=== PATIENT | female | born 1935 | race Native Hawaiian/Other Pacific Islander ===

== ENCOUNTER 2017-08-21 10:35 | Emergency (ER) | payer MEDICARE ==
[2017-08-21 10:48] VITALS: BMI 20.2
--- NOTE | 2017-08-21 11:26 | C.PDOC ---
History Of Present Illness 82 yo female w/PMHx of HTN, CAD s/p NE, hemorrhoids, come in for evaluation of constipation for past 3 days. As per son, pt was c/o unable to urinate since yesterday evening. At present time, pt c/o mild Right lower back and suprapubic pain. Otherwise, pt and family denies fever, chills, lethargy or change in MS, headache, dizziness, CP, SOB, dyspnea, diaphoresis, palpitation, abd. pain, N/V/ D, denies blood in stool. Ambulate to ED for evaluation, not in nay apparent distress. Time Seen by Provider: 08/21/17 10:59 Chief Complaint (Nursing): GI Problem History Per: Patient, Family Past Medical History Reviewed: Historical Data, Nursing Documentation, Vital Signs Vital Signs: Last Vital Signs Temp 98 F 08/21/17 13:51 Pulse 83 08/21/17 13:51 Resp 20 08/21/17 13:51 BP 158/52 H 08/21/17 13:51 Pulse Ox 98 08/21/17 15:23 - Medical History PMH: CAD, HTN Surgical History: Carotid Endarterectomy - [facility] CONTR CEREBR ARTERIOGRAM (09/02/06) Family History: States: Unknown Family Hx - Social History Hx Tobacco Use: No Hx Alcohol Use: No Hx Substance Use: No - Immunization History Hx Tetanus Toxoid Vaccination: No Hx Influenza Vaccination: Yes Hx Pneumococcal Vaccination: No Review Of Systems Except As Marked, All Systems Reviewed And Found Negative. Constitutional: Negative for: Fever, Chills Eyes: Negative for: Vision Change ENT: Negative for: Ear Discharge, Nose Discharge, Throat Pain, Throat Swelling Cardiovascular: Negative for: Chest Pain, Palpitations, Orthopnea, Paroxysmal Noc. Dyspnea, Edema, Light Headedness Respiratory: Negative for: Cough, Shortness of Breath, Wheezing Gastrointestinal: Positive for: Constipation. Negative for: Nausea, Vomiting, Abdominal Pain, Melena, Hematochezia, Hematemesis, Rectal Pain Genitourinary: Negative for: Dysuria, Frequency Musculoskeletal: Positive for: Back Pain Skin: Negative for: Rash Neurological: Negative for: Weakness, Numbness, Altered Mental Status, Headache , Dizziness Physical Exam - Physical Exam Appears: Well, Non-toxic, No Acute Distress Skin: Normal Color, Warm, Dry, No Rash Eye(s): bilateral: PERRL Nose: No Flaring Oral Mucosa: Moist, No Drooling Throat: No Erythema, No Exudate, No Drooling Neck: Trachea Midline, Supple Cardiovascular: Rhythm Regular, No Murmur, No JVD Respiratory: No Decreased Breath Sounds, No Rales, No Rhonchi Gastrointestinal/Abdominal: Soft, Tenderness (mild suprapubic tenderness), No Organomegaly, No Distention, No Guarding, No Rebound Rectal: Rectal Tone, Heme Positive, Hemorrhoids (external, non-thrombosed), Other (rectal disimpaction performed during the exam) Back: No CVA Tenderness Extremity: Normal ROM, No Pedal Edema, No Deformity, No Swelling Neurological/Psych: Oriented x3, Normal Speech ED Course And Treatment - Laboratory Results Result Diagrams: 08/21/17 12:04 08/21/17 12:04 Lab Interpretation: Abnormal ECG: Interpreted By Me, Viewed By Me ECG Rhythm: Sinus Rhythm (1st degree AV block) ECG Interpretation: Abnormal Interpretation Of ECG: Left axis deviation. Q wave 3 AVF. T wave incersion 2 3 AVF and V5 and V6. No old EKG to compare. Rate From EC (BPM) O2 Sat by Pulse Oximetry: 98 (RA) Pulse Ox Interpretation: Normal - Other Rad X-Ray - Abd X-Ray: Viewed By Me, Read By Radiologist Interpretation: Abdomen two views. History: Constipation. Comparison: None available. Findings: Mild fecal retention in the colon. Few mildly dilated loops of small bowel in the mid and left alexey abdomen. Degenerative changes in the spine with a levo scoliotic curvature of upper lumbar spine. Prominent costochondral calcifications noted within the lower thoracic spine. Degenerative changes in the bilateral hips. Aortic calcification. Impression: Nonspecific bowel gas pattern with a few mildly dilated loops of small bowel seen within the mid and left alexey abdomen. Clinical correlation. Mild fecal retention in the colon. - CT Scan/US CT - Abdomen & Pelvis Other Rad Studies (CT/US): Read By Radiologist, Radiology Report Reviewed CT/US Interpretation: PROCEDURE: CT Abdomen and Pelvis without intravenous contrast. HISTORY: constipation, melena. COMPARISON: None. TECHNIQUE: Multiple contiguous axial images were performed through the abdomen and pelvis without the use of intravenous contrast. Subsequently, sagittal and coronal reformatted images were obtained. Radiation dose: Total exam DLP = 199 mGy- cm. This CT exam was performed using one or more of the following dose reduction techniques: Automated exposure control, adjustment of the mA and/or kV according to patient size, and/or use of iterative reconstruction technique. FINDINGS: LOWER THORAX: Mild atelectasis within the inferior aspect of the left upper lobe. 2-3 millimeter pulmonary nodule within the lateral aspect of the right lower lobe. LIVER: Few punctate echogenic calcifications within the right hepatic. GALLBLADDER AND BILE DUCTS: Under distended and or contracted gallbladder. Few punctate echogenic calcifications measuring 6 and 7 millimeters seen at the level of the right intrahepatic biliary ductal system, nonspecific. Clinical correlation. Just inferior to the gallbladder fossa, there are some rounded foci of increased attenuation measuring up to 8 millimeters which may represent adjacent contrast filled diverticuli. This may be better evaluated right upper quadrant abdominal ultrasound if clinically indicated. PANCREAS: Heterogeneity at the head of the pancreas. SPLEEN: Diminutive spleen. ADRENALS: Unremarkable. No mass. KIDNEYS AND URETERS: 2 millimeter echogenic calcific foci in the upper pole of the right kidney, possibly representing a nonobstructive calculus. Renal vascular calcifications. VASCULATURE: Prominent calcification and plaque within the aorta. Coronary calcifications. Partially calcified iliac vessels. BOWEL: Fecal retention in the colon. Prominent fecal distention of the rectum. Thickening of the rectal wall. This would be concerning for possible stercoral colitis. Clinical correlation. Colonic diverticulosis. Mild thickening of the distal descending colon/ proximal sigmoid colon. Mild thickening of the cecum. APPENDIX: Not well identified. PERITONEUM: Unremarkable. No free fluid. No free air. LYMPH NODES: Few shotty para-aortic and mesenteric lymph nodes. BLADDER: Distended urinary bladder. REPRODUCTIVE: Unremarkable. BONES: Severe compression deformity of the L1 vertebral body with retropulsion of the posterior vertebral body into the spinal canal. Correlation with spinal MRI may be helpful if clinically indicated. OTHER FINDINGS: None. IMPRESSION: 1. Prominent fecal distention of the rectum. Thickening of the rectal wall. This would be concerning for possible stercoral colitis. Clinical correlation. 2. Colonic diverticulosis. Mild thickening of the distal descending colon/ proximal sigmoid colon. Mild thickening of the cecum. 3. Severe compression deformity of the L1 vertebral body with retropulsion of the posterior vertebral body into the spinal canal. Correlation with spinal MRI may be helpful if clinically indicated. Additional findings as above. Progress Note: After my initial evaluation, rectal disimpaction performed by me , removed soft stool. Rectal tone normal. AT 12:10, as per RN, pt was able to urinate and had BM in ED prior to Dooley insertion and Enema tx, will hold above tx for now. Pt remained stable, afebrile, hemodynamicaly stable. Non-toxic. EKG review and appears abnormal. No old EKG available to compare. Blood work review and appears abnormal with anemia, thrombocytopenia. Mild increase in BUN/ CR noted, pt admits, has hx of it, under nephrology observation. No previous visit and/or blood work available to compare current results. Troponin- negative. Await for CT abd/pelvis w/PO contrast only since high GFR. aT 15:00 , Pt resting comfortably, not in any apparent distress. Pt is ambulatory in ED with stable gait. Afebrile, hemodynamicalys table. NOn-toxic. Abd: benign, (- ) guarding, (-) rebound, (-) localized tenderness. Back: (-) CVA tenderness. Neuorlogicaly intact. As per family, pt was able to move BM multiple times while in ED. Blood work review, imaging review and case discussed with pt's PMD . As per , aware of abnormal findings on blood work, appears chronic, do not report any new changes from baseline. As per , Pt had oupt nuclear stress test 04/2017 with normal results, aware of abnormal EKG . As per , no need for inpatient admission at present time, recommend discharge with outpt f/u in 1-2 days and outpt colonoscopy. results review and discussed with pt and family, feels comforatble for discharge, agrees with plan. Pt is stable for discharge now. no new Disposition - Disposition Referrals: Trerell Greene MD [Staff Provider] - Disposition: HOME/ ROUTINE Disposition Time: 15:10 Condition: STABLE Additional Instructions: STOP ASPIRIN NOW ENCOURAGE FLUIDS, PRUNE JUICE FOR CONSTIPATION FOLLOW UP WITH PMD IN 1-2 DAYS FOR RE-EVALUATION AND OUTPATIENT COLONOSCOPY RETURN TO ED IF ANY WORSENING OR NEW CHANGES. Instructions: Constipation (ED) Forms: [employer] (Japanese) - Clinical Impression Clinical Impression: Constipation, Thrombocytopenia, Renal insufficiency
[2017-08-21] MEDS ORDERED: Sodium Chloride 0.9% 1,000 ML IV ONE (11:29)
[2017-08-21 12:07] LABS: BASO % 0.1 % (0.0-2.0); EOS # 0.1 K/uL (0.0-0.7); EOS % 1.1 % (0.0-4.0); HEMATOCRIT 27.2 % (34.0-47.0); LYMPH # 1.2 K/uL (1.0-4.3); LYMPH % 19.9 % (20.0-40.0); MEAN CELL VOLUME 87.4 fL (81.0-99.0); MEAN CORPUSCULAR HEMOGLOBIN 28.8 pg (27.0-31.0); MEAN CORPUSCULAR HGB CONC 32.9 g/dL (33.0-37.0); MEAN PLATELET VOLUME 9.9 fL (7.2-11.7); MONO # 0.6 K/uL (0.0-0.8); MONO % 10.7 % (0.0-10.0); RED CELL DISTRIBUTION WIDTH 15.5 % (11.5-14.5); WHITE BLOOD COUNT 5.9 K/uL (4.8-10.8)
[2017-08-21 12:07] LABS: RBC URINE < 1 /hpf (0-3); URINE BILIRUBIN NEGATIVE (NEGATIVE); URINE BLOOD 1+ (NEGATIVE); URINE COLOR Yellow (YELLOW); URINE GLUCOSE (UA) NORMAL (Normal); URINE KETONE NEGATIVE (NEGATIVE); URINE LEUKOCYTE ESTERASE NEG Leu/uL (Negative); URINE PROTEIN NEGATIVE (NEGATIVE); URINE UROBILINOGEN NORMAL mg/dL (0.2-1.0); WBC URINE 4 /hpf (0-5)
[2017-08-21] MEDS ORDERED: Iohexol 240 (50 ml) ONE (12:09)
[2017-08-21] MEDS ORDERED: Sodium Chloride 0.9% 1,000 ML ONE (12:09)
[2017-08-21 12:23] LABS: CALCIUM 9.3 mg/dl (8.6-10.4)
[2017-08-21 12:24] LABS: BILIRUBIN,TOTAL 0.4 mg/dL (0.2-1.3); POTASSIUM 3.9 mmol/L (3.6-5.2); TOTAL PROTEIN 8.4 g/dL (6.3-8.3)
[2017-08-21 12:32] LABS: TROPONIN I 0.053 ng/mL (0.00-0.120)
--- NOTE | 2017-08-21 15:00 | CT ---
PROCEDURE: CT Abdomen and Pelvis without intravenous contrast HISTORY: constipation, melena COMPARISON: None. TECHNIQUE: Multiple contiguous axial images were performed through the abdomen and pelvis without the use of intravenous contrast. Subsequently, sagittal and coronal reformatted images were obtained. Radiation dose: Total exam DLP = 199 mGy-cm. This CT exam was performed using one or more of the following dose reduction techniques: Automated exposure control, adjustment of the mA and/or kV according to patient size, and/or use of iterative reconstruction technique. FINDINGS: LOWER THORAX: Mild atelectasis within the inferior aspect of the left upper lobe. 2-3 millimeter pulmonary nodule within the lateral aspect of the right lower lobe. LIVER: Few punctate echogenic calcifications within the right hepatic GALLBLADDER AND BILE DUCTS: Under distended and or contracted gallbladder. Few punctate echogenic calcifications measuring 6 and 7 millimeters seen at the level of the right intrahepatic biliary ductal system, nonspecific. Clinical correlation. Just inferior to the gallbladder fossa, there are some rounded foci of increased attenuation measuring up to 8 millimeters which may represent adjacent contrast filled diverticuli. This may be better evaluated right upper quadrant abdominal ultrasound if clinically indicated. PANCREAS: Heterogeneity at the head of the pancreas. SPLEEN: Diminutive spleen. ADRENALS: Unremarkable. No mass. KIDNEYS AND URETERS: 2 millimeter echogenic calcific foci in the upper pole of the right kidney, possibly representing a nonobstructive calculus. Renal vascular calcifications. VASCULATURE: Prominent calcification and plaque within the aorta. Coronary calcifications. Partially calcified iliac vessels. BOWEL: Fecal retention in the colon. Prominent fecal distention of the rectum. Thickening of the rectal wall. This would be concerning for possible stercoral colitis. Clinical correlation. Colonic diverticulosis. Mild thickening of the distal descending colon/ proximal sigmoid colon. Mild thickening of the cecum. APPENDIX: Not well identified. PERITONEUM: Unremarkable. No free fluid. No free air. LYMPH NODES: Few shotty para-aortic and mesenteric lymph nodes. BLADDER: Distended urinary bladder. REPRODUCTIVE: Unremarkable. BONES: Severe compression deformity of the L1 vertebral body with retropulsion of the posterior vertebral body into the spinal canal. Correlation with spinal MRI may be helpful if clinically indicated. OTHER FINDINGS: None. IMPRESSION: 1. Prominent fecal distention of the rectum. Thickening of the rectal wall. This would be concerning for possible stercoral colitis. Clinical correlation. 2. Colonic diverticulosis. Mild thickening of the distal descending colon/ proximal sigmoid colon. Mild thickening of the cecum. 3. Severe compression deformity of the L1 vertebral body with retropulsion of the posterior vertebral body into the spinal canal. Correlation with spinal MRI may be helpful if clinically indicated. Additional findings as above.
[2017-08-21 16:10] VITALS: BP 161/61; PULSE 72; RESP 18; TEMP 97.6; O2SAT 99
--- NOTE | 2017-08-23 17:56 | CARD ---
APPROVED REPORT EKG Measurement Heart [id number] <Conclusion> Sinus rhythm with 1st degree AV block with premature atrial complexes Left ventricular hypertrophy with QRS widening and repolarization abnormality Abnormal ECG
== END 2017-08-21 16:10 | disposition home or self-care (01) ==
LOC: C.ER 10:35
DX: K59.00 Constipation, unspecified (principal); N28.9 Disorder of kidney and ureter, unspecified; D69.6 Thrombocytopenia, unspecified; I25.10 Atherosclerotic heart disease of native coronary artery without angina pectoris; I10 Essential (primary) hypertension; I25.2 Old myocardial infarction
CPT/HCPCS: 74020; 74176; 80053; 81001; 82948; 83690; 84484; 85025; 85610; 85730; 87086; 96360; 99284; J7040